=== PATIENT | female | born 1955 | race Caucasian/White ===

== ENCOUNTER 2020-08-16 10:47 | Emergency (ER) | payer MEDICARE, OTHER ==
[2020-08-16] MEDS ORDERED: predniSONE 20 MG TAB ONE (11:48)
[2020-08-16] MEDS ORDERED: Ketorolac Tromethamine 30 MG/ML VIAL ONE (11:48)
--- NOTE | 2020-08-16 18:08 | CT ---
CT OF THE CERVICAL SPINE: 08/16/[address] of the cervical spine was done for evaluation of neck pain. There is loss of the normal cervical lordosis which may be due to muscle spasm but it also could be t he patient's norm. No fracture, dislocation, or soft tissue swelling was seen. The C1 to dens distanc e is normal. There is slight disc space narrowing at C5-C6 and especially C6-C7. Findings by level f ollow below. There is certainly extensive degenerative change at many levels. C1-C2: No acute findings. C2-C3: Mild facet arthritis on the left. Foramina patent, though there is minimal narrowing on the le ft. C3-C4: Mild to moderate facet arthritis with mild to moderate left foraminal stenosis. C4-C5: There appears to be a central disc protrusion which probably effaces the thecal sac. MRI would be more accurate at determining any impingement. There is minimal foraminal narrowing on the left. C5-C6: A central disc osteophyte complex is present with some protrusion of the disc. There is no spi nal stenosis. C6-C7: There is a mild concentric disc osteophyte complex. Minor foraminal stenosis is present. C7-T1: There is prominent facet arthritis at this level. There is no central canal stenosis. T1-T2: No acute findings. Lung apices are clear. There is a large mass hypodensity in the left lobe of the thyroid that is near ly 3 cm in length. A thyroid mass is assumed and an ultrasound is recommended. IMPRESSION: 1. Diffuse degenerative changes. Straightening of the cervical spine. 2. Central disc protrusion at C5-C6 and to a lesser degree C4-C5. 3. Mild left foraminal stenosis at C3-C4. 4. Large left lobe thyroid mass, nearly 3 cm in size. An elective ultrasound to investigate furt her is recommended. Findings discussed with Dr. Beal at 12:22 on 08/16/20. POS: HOME
== END 2020-08-16 13:05 | disposition home or self-care (01) ==
LOC: BURERS 10:47
DX: M54.12 Radiculopathy, cervical region (principal); I10 Essential (primary) hypertension; F32.9 Major depressive disorder, single episode, unspecified; Z79.899 Other long term (current) drug therapy
CPT/HCPCS: 72125; 96372; J1885; J7512